=== PATIENT | male | born 1955 | race Caucasian/White ===

== ENCOUNTER 2017-08-03 10:37 | Emergency (ER) | payer MEDICARE, OTHER ==
[~2017-08-03] VITALS: Ht 172.7 cm; Wt 96.2 kg
[~2017-08-03 10:37] MED LIST: CLOM50; HYDACE5; IBUP100S; PAXIL
[2017-08-03] MEDS ORDERED: BENZ100A PO (12:55)
[2017-08-03] MEDS ORDERED: Flovent 44 mc10.6 GM INH (12:55)
[2017-08-03] MEDS ORDERED: TAMS.4ER PO (14:19)
[2017-08-03] MEDS ORDERED: VICODIN 5-3001 EACH PO (14:19)
[2017-08-03] MEDS ORDERED: IBUP800 PO (14:19)
[2017-08-03] MEDS ORDERED: [UNRECOGNIZED DRUG - OTHER] PO (14:20)
[2017-08-03] MEDS ORDERED: PAXIL40 MG PO (14:20)
[2018-05-06] MEDS ORDERED: ZOLP10 PO (16:59)
[2018-05-06] MEDS ORDERED: ANAFRANIL (17:02)
[2018-06-10] MEDS ORDERED: HYDR-86 PO (17:56)
[2018-06-10] MEDS ORDERED: FINA5 PO (17:56)
[2018-06-10] MEDS ORDERED: Depo-Testos200 MG/ML IM (17:57)
[2018-06-10] MEDS ORDERED: Pentoxifylline400 MG PO (17:58)
[2018-06-10] MEDS ORDERED: DILT120 PO (17:59)
[2018-06-10] MEDS ORDERED: Zestril40 MG PO (17:59)
[2018-06-10] MEDS ORDERED: Hydrochloroth12.5 MG PO (17:59)
[2018-06-10] MEDS ORDERED: Clomipramine HC50 MG PO (17:59)
[2018-06-10] MEDS ORDERED: OLAN5 PO (19:16)
== END 2017-08-03 14:00 | disposition home or self-care (01) ==
LOC: ER 10:37
DX: J06.9 Acute upper respiratory infection, unspecified (principal); I10 Essential (primary) hypertension; Z88.0 Allergy status to penicillin; Z88.2 Allergy status to sulfonamides; Z79.899 Other long term (current) drug therapy; Z87.891 Personal history of nicotine dependence
CPT/HCPCS: 94640; 99283

== ENCOUNTER 2019-08-11 12:44 | Emergency (ER) | payer MEDICARE ==
[~2019-08-11] VITALS: Ht 167.6 cm; Wt 89.8 kg
[~2019-08-11 12:44] MED LIST changes: +ANAFRANIL; +BENZ100A PO; +Clomipramine HC50 MG PO; +DILT120 PO; +Depo-Testos200 MG/ML IM; +FINA5 PO; +Flovent 44 mc10.6 GM INH; +HYDR-86 PO; +Hydrochloroth12.5 MG PO; +IBUP800 PO; +OLAN5 PO; +PAXIL40 MG PO; +Pentoxifylline400 MG PO; +TAMS.4ER PO; +VICODIN 5-3001 EACH PO; +ZOLP10 PO; +Zestril40 MG PO; +[UNRECOGNIZED DRUG - OTHER] PO
[2019-08-11 13:10] LABS: Source, Urine Clean Catch
[2019-08-11 13:14] LABS: Bilirubin, Urine Neg (Neg); Blood, Urine Neg (Neg); Glucose Qualitative, Urine Neg (Neg); Ketones, Urine Neg (Neg); Leukocyte Esterase, Urine Neg (Neg); Nitrite, Urine Neg (Neg); Protein, Urine Neg (Neg); Specific Gravity, Urine 1.005 (1.003-1.022); Urobilinogen, Urine NORM (Normal)
[2019-08-11 13:17] LABS: Appearance, Urine Clear (Clear); Color, Urine Yellow (P-Yellow)
== END 2019-08-11 13:59 | disposition home or self-care (01) ==
LOC: ER 12:44
PROVIDERS: Emergency Medicine
DX: R30.0 Dysuria (principal); Z88.0 Allergy status to penicillin; Z88.2 Allergy status to sulfonamides; Z79.899 Other long term (current) drug therapy; Z87.891 Personal history of nicotine dependence
CPT/HCPCS: 81003; 99283

== ENCOUNTER 2020-12-10 10:11 | Observation (INO) | payer MEDICARE, OTHER ==
[~2020-12-10] VITALS: Ht 167.6 cm; Wt 95.3 kg
[2020-12-10 11:08] LABS: BASOPHILS ABSOLUTE AUTO 0.04 K/mm3 (0.00-0.23); BASOPHILS PERCENT AUTO 0 % (0-2); EOSINOPHILS ABSOLUTE AUTO 0.01 K/mm3 (0.00-0.68); EOSINOPHILS PERCENT AUTO 0 % (0-6); Hematocrit 34.2 % (37.0-53.0); Hemoglobin 11.6 g/dL (13.5-17.5); IMMATURE GRAN ABSOLUTE AUTO 0.14 K/mm3 (0.00-0.10); IMMATURE GRAN PERCENT AUTO 1 % (0-1); LYMPHOCYTES ABSOLUTE AUTO 0.79 K/mm3 (0.84-5.20); LYMPHOCYTES PERCENT AUTO 4 % (21-46); MONOCYTES ABSOLUTE AUTO 0.99 K/mm3 (0.16-1.47); MONOCYTES PERCENT AUTO 5 % (4-13); Mean Corpuscular HGB 31.5 pg (26.0-34.0); Mean Corpuscular HGB Conc 33.9 g/dL (31.5-36.5); Mean Corpuscular Volume 93 fL (80-100); Mean Platelet Volume 10.2 fL (9.1-12.4); NEUTROPHILS ABSOLUTE AUTO 19.56 K/mm3 (1.96-9.15); NEUTROPHILS PERCENT AUTO 91 % (41-73); Platelet Count 180 K/mm3 (150-400); RDW Coefficient Variation 12.5 % (11.7-14.2); RDW Standard Deviation 43.2 fL (35.1-46.3); Red Blood Cell Count 3.68 M/mm3 (4.30-5.90); White Blood Cell Count 21.53 K/mm3 (4.00-11.30)
[2020-12-10 11:24] LABS: International Normalized Ratio 0.97; Prothrombin Time Results 10.5 Sec (9.7-11.5)
[2020-12-10 11:34] LABS: Alanine Aminotransfer (ALT/SGP 8 U/L (12-78); Albumin, Blood 3.3 g/dL (3.4-5.0); Alk Phos 79 U/L (50-136); Anion Gap 6 mmol/L (6-16); Aspartate Aminotrans (AST/SGOT 15 U/L (12-37); Bilirubin, Total 0.5 mg/dL (0.1-1.0); Blood Urea Nitrogen 22 mg/dL (8-24); Bun/Creatinine Ratio 22.4 (12.0-20.0); CO2, Blood 24 mmol/L (21-32); Calcium, Blood 8.8 mg/dL (8.5-10.1); Chloride, Blood 108 mmol/L (98-108); Creatinine, Blood 0.98 mg/dL (0.60-1.20); Globulin, Blood 3.2 g/dL (2.2-4.0); Glomerular Filtration Rate >60 (60-); Glucose, Blood 128 mg/dL (70-99); Potassium, Blood 3.9 mmol/L (3.5-5.5); Sodium, Blood 138 mmol/L (136-145); Total Protein, Blood 6.5 g/dL (6.4-8.2)
[2020-12-10] MEDS ORDERED: CLOMIPRAMINE HC PO (13:13)
[2020-12-10] MEDS ORDERED: NEURONTIN300 MG PO (13:13)
[2020-12-10] MEDS ORDERED: HYDROCHLOROTH12.5 MG PO (13:14)
[2020-12-10] MEDS ORDERED: TAMSULOSIN HCL0.4 M1 PO (13:14)
[2020-12-10] MEDS ORDERED: CARBIDOPA-LEVO1 EA15 PO (13:15)
[2020-12-10] MEDS ORDERED: CYCL10 PO (13:15)
[2020-12-10] MEDS ORDERED: IBU800 M1 PO (13:16)
[2020-12-10] MEDS ORDERED: ESCI20 PO (13:16)
[2020-12-10] MEDS ORDERED: DILTIAZEM 24HR120 M4 PO (13:16)
[2020-12-10] MEDS ORDERED: OLANZAPINE5 M1 PO (13:16)
[2020-12-10 14:17] LABS: Source, Urine Catheter
[2020-12-10 14:21] LABS: Appearance, Urine Clear (Clear); Bilirubin, Urine Neg (Neg); Blood, Urine Neg (Neg); Color, Urine Yellow (P-Yellow); Glucose Qualitative, Urine Neg (Neg); Ketones, Urine Neg (Neg); Leukocyte Esterase, Urine 2+ (Neg); Nitrite, Urine Neg (Neg); Protein, Urine Neg (Neg); Specific Gravity, Urine 1.015 (1.003-1.022); Urobilinogen, Urine NORM (Normal)
[2020-12-10 14:28] LABS: Bacteria Many /hpf; Red Blood Cells, Urine Not Seen /hpf (0-2); Squamous Epithelial Cells Rare /hpf (Few)
[2020-12-10 14:57] LABS: Adenovirus Not Detected (NOT DETECT); Coronavirus 229E Not Detected (NOT DETECT); Coronavirus HKU1 Not Detected (NOT DETECT)
[2020-12-10 14:58] LABS: Bordetella pertussis Not Detected (NOT DETECT); Chlamydophila pneumoniae Not Detected (NOT DETECT); Coronavirus NL63 Not Detected (NOT DETECT); Coronavirus OC43 Not Detected (NOT DETECT); Human Metapneumovirus Not Detected (NOT DETECT); Human Rhinovirus/Enterovirus Not Detected (NOT DETECT); Influenza A/2009-H1 Not Detected (NOT DETECT); Influenza A/H1 Not Detected (NOT DETECT); Influenza A/H3 Not Detected (NOT DETECT); Influenza B Not Detected (NOT DETECT); Mycoplasma pneumoniae Not Detected (NOT DETECT); Parainfluenza Virus 1 Not Detected (NOT DETECT); Parainfluenza Virus 2 Not Detected (NOT DETECT); Parainfluenza Virus 3 Not Detected (NOT DETECT); Parainfluenza Virus 4 Not Detected (NOT DETECT); Respiratory Syncytial Virus Not Detected (NOT DETECT); SARS-Cov-2 (COVID-19), BioFire Not Detected (NOT DETECT)
--- NOTE | 2020-12-10 19:27 | NUR ---
A+O but anxious, rm air, denies cp, orintated to rm, interacted apprpriatly during bsr with noc nurse, laura scott, call light in reach, focuses on details
--- NOTE | 2020-12-11 04:02 | NUR ---
SUMMARY NO NEW ISSUES NOTED. PT DENIES INCREASED SOB. PT HAS BEEN RESTING WELL T/O SHIFT. PT CURRENTLY SLEEPING AND BREATHING EASY. CALL LIGHT IN REACH.
[2020-12-11 09:54] LABS: BASOPHILS ABSOLUTE AUTO 0.04 K/mm3 (0.00-0.23); BASOPHILS PERCENT AUTO 0 % (0-2); EOSINOPHILS ABSOLUTE AUTO 0.17 K/mm3 (0.00-0.68); EOSINOPHILS PERCENT AUTO 2 % (0-6); Hematocrit 31.6 % (37.0-53.0); Hemoglobin 10.5 g/dL (13.5-17.5); IMMATURE GRAN ABSOLUTE AUTO 0.04 K/mm3 (0.00-0.10); IMMATURE GRAN PERCENT AUTO 0 % (0-1); LYMPHOCYTES ABSOLUTE AUTO 1.75 K/mm3 (0.84-5.20); LYMPHOCYTES PERCENT AUTO 19 % (21-46); MONOCYTES ABSOLUTE AUTO 0.65 K/mm3 (0.16-1.47); MONOCYTES PERCENT AUTO 7 % (4-13); Mean Corpuscular HGB Conc 33.2 g/dL (31.5-36.5); Mean Corpuscular Volume 93 fL (80-100); Mean Platelet Volume 10.3 fL (9.1-12.4); NEUTROPHILS ABSOLUTE AUTO 6.52 K/mm3 (1.96-9.15); NEUTROPHILS PERCENT AUTO 71 % (41-73); Platelet Count 173 K/mm3 (150-400); RDW Coefficient Variation 12.7 % (11.7-14.2); RDW Standard Deviation 43.8 fL (35.1-46.3); Red Blood Cell Count 3.39 M/mm3 (4.30-5.90); White Blood Cell Count 9.17 K/mm3 (4.00-11.30)
[2020-12-11 10:16] LABS: Anion Gap 4 mmol/L (6-16); Blood Urea Nitrogen 20 mg/dL (8-24); Bun/Creatinine Ratio 22.1 (12.0-20.0); CO2, Blood 27 mmol/L (21-32); Chloride, Blood 107 mmol/L (98-108); Glomerular Filtration Rate >60 (60-); Glucose, Blood 182 mg/dL (70-99); Potassium, Blood 3.5 mmol/L (3.5-5.5); Sodium, Blood 138 mmol/L (136-145)
[2020-12-11] MEDS ORDERED: AZIT250 PO (11:39)
[2020-12-11] MEDS ORDERED: CEFP200 PO (11:39)
--- NOTE | 2020-12-11 13:56 | NUR ---
PT D/C'D TO HOME WITH . RX FAXED TO [facility] IN [place]. DC'D INSTRUCTIONS AND EDUCATION DISCUSSED WITH PT AND COPY PROVIDED. PT DENIES ANY FURTHER QUESTIONS OR CONCERNS.
--- NOTE | 2020-12-11 14:41 | NUR ---
CARE COORDINATION REFERRAL - ADMIT:12/10/20 DISCHARGE: DX: PNEUMONIA/ HYPOXIA CC: EVON BILLY CALL: RESIDENCE: HOME WITH SPOUSE CAREGIVER: TROY SANTOYO, SPOUSE / PARTNER, DX: HTN, HYPERLIPIDEMIA, [place], OCD, SEE LIST DME: NONE CCM: NONE HOME HEALTH: NONE SUMMARY: ADMIT: 12/10/20 12/11/20- PER CHART REVIEW, PT HAD SWALLOW EVAL DONE DUE TO ILL FITTING UPPER DENTURE AND HAVING TROUBLE SWALLOWING. ASPIRATION PRECAUTIONS DISCUSSED WITH PT. DYSPHAGIA PRECAUTIONS ORDERED ALONG WITH ORAL CARE FOR THE PT. CHEST X-RAY SHOW PNEUMONIA. PT WAS STARTED ON IV ANTIBIOTICS. -KADIE
== END 2020-12-11 13:19 | disposition home or self-care (01) ==
LOC: ER 10:11 → MEDS 10:12 → ER 12:59 → MEDS 12:59 → ENPENDDIS 12-11 11:23 → MEDS 12-11 12:44 → ER 12-11 12:44 → MEDS 12-11 12:44 → ENPENDDIS 12-11 13:09 → MEDS 12-11 13:19
PROVIDERS: Family Medicine; Physician Assistant; ADMIT Hospitalist
DX: J18.9 Pneumonia, unspecified organism (principal); I10 Essential (primary) hypertension; M16.11 Unilateral primary osteoarthritis, right hip; G20 Parkinson's disease; E78.5 Hyperlipidemia, unspecified; G47.33 Obstructive sleep apnea (adult) (pediatric); M10.9 Gout, unspecified; N40.0 Benign prostatic hyperplasia without lower urinary tract symptoms; Z20.822 Contact with and (suspected) exposure to COVID-19; F42.9 Obsessive-compulsive disorder, unspecified; R79.89 Other specified abnormal findings of blood chemistry; Z79.82 Long term (current) use of aspirin; Z88.0 Allergy status to penicillin; Z88.2 Allergy status to sulfonamides; Z88.8 Allergy status to other drugs, medicaments and biological substances
CPT/HCPCS: 0202U; 36415; 71045; 80048; 80053; 81001; 83605; 83880; 84484; 85025; 85610; 85730; 87040; 87086; 92610; 93005; 93010; 93306; 94640; 94667; 94760; 96365; 96367; 99285-25; A9270; J0456; J0696; J1650; J7050; J7120

== ENCOUNTER 2024-01-03 10:33 | Emergency (ER) | payer MEDICARE, OTHER ==
[~2024-01-03] VITALS: Ht 167.6 cm; Wt 95.7 kg
[~2024-01-03 10:33] MED LIST changes: +AZIT250 PO; +CARBIDOPA-LEVO1 EA15 PO; +CEFP200 PO; +CLOMIPRAMINE HC PO; +CYCL10 PO; +DILTIAZEM 24HR120 M4 PO; +ESCI20 PO; +HYDROCHLOROTH12.5 MG PO; +IBU800 M1 PO; +NEURONTIN300 MG PO; +OLANZAPINE5 M1 PO; +TAMSULOSIN HCL0.4 M1 PO
[2024-01-03] MEDS ORDERED: Clindamycin HC150 MG PO (11:22)
[2024-01-03] MEDS ORDERED: NS 1,000 ML IV SCH (11:45)
[2024-01-03 12:50] VITALS: BP 100/59
== END 2024-01-03 12:51 | disposition home or self-care (01) ==
LOC: ER 10:33
DX: L03.317 Cellulitis of buttock (principal); L02.31 Cutaneous abscess of buttock; E78.5 Hyperlipidemia, unspecified; I10 Essential (primary) hypertension; G47.33 Obstructive sleep apnea (adult) (pediatric); Z87.891 Personal history of nicotine dependence; Z79.899 Other long term (current) drug therapy; Z88.0 Allergy status to penicillin; Z88.2 Allergy status to sulfonamides
CPT/HCPCS: 96360; 99283-25; J7030